=== PATIENT | male | born 1950 | race Caucasian/White ===

== ENCOUNTER 2018-08-10 23:35 | Observation (INO) | payer MEDICARE, OTHER, BC ==
[2018-08-11 00:25] LABS: ADD MAN DIFF? NO
[2018-08-11 00:26] LABS: BASOPHILS % 0.4 % (0.0-2.0); EOSINOPHILS # 0.4 10^3/ul (0.0-0.5); EOSINOPHILS % 5.4 % (0.0-7.0); HEMATOCRIT 41.7 % (42.0-52.0); HEMOGLOBIN 13.8 g/dl (14.0-18.0); LYMPHOCYTES # 2.4 10^3/ul (0.8-2.9); LYMPHOCYTES % 34.6 % (15.0-51.0); MEAN CORPUSCULAR HGB CONC 33.1 g/dl (32.0-37.0); MEAN CORPUSCULAR VOLUME 90.7 fl (82.0-101.0); MEAN PLATELET VOLUME 9.7 fl (7.4-10.4); MONOCYTE # 0.5 10^3/ul (0.3-0.9); MONOCYTES % 7.2 % (0.0-11.0); NEUTROPHIL # 3.6 10^3/ul (1.6-7.5); NEUTROPHILS % 52.3 % (39.0-77.0); PLATELET COUNT 201 10^3/UL (140-415); RED CELL DISTRIBUTION WIDTH 13.2 % (11.5-14.5)
[2018-08-11 00:26] LABS: WHITE BLOOD COUNT 6.8 10^3/ul (4.8-10.8)
[2018-08-11 00:56] LABS: ANION GAP 10 (5-13); BLOOD UREA NITROGEN 17 mg/dl (7-20); CALCIUM 9.5 mg/dl (8.4-10.2); CARBON DIOXIDE 28 mmol/L (21-31); CHLORIDE 101 mmol/L (97-110); CREATININE 0.93 mg/dl (0.61-1.24); Estimated GFR > 60 mL/min (>60); GLUCOSE 110 mg/dl (70-220); POTASSIUM 4.4 mmol/L (3.5-5.1); SODIUM 139 mmol/L (135-144)
[2018-08-11] MEDS: ASPIRIN 81 MG TAB PO ×2 (00:56→08:35)
[2018-08-11 01:07] LABS: TROPONIN-I 0.034 ng/ml (0.000-0.120)
[2018-08-11] MEDS ORDERED: ONDANSETRON 4 MG INJ IV ×2 (02:30→03:30)
[2018-08-11] MEDS ORDERED: ACETAMINOPHEN 325 MG TAB PO ×2 (02:30→03:30)
[2018-08-11] MEDS ORDERED: NACL 0.9% 3 ML SYG IV (03:30)
[2018-08-11] MEDS ORDERED: NON-FORMULARY/PATIENT OWN MED (Temazepam* 15 MG) PO (03:30)
[2018-08-11] MEDS ORDERED: ALBUTEROL/IPRATROPIUM (NEB) 3 ML AMP HHN (03:30)
[2018-08-11] MEDS ORDERED: NITROGLYCERIN (SL) 0.4 MG TAB SL ×2 (03:30→03:45)
[2018-08-11] MEDS ORDERED: TEMAZEPAM 15 MG CAP PO (04:00)
[2018-08-11 06:20] LABS: ADD MAN DIFF? NO
[2018-08-11 06:27] LABS: BASOPHILS % 0.5 % (0.0-2.0); EOSINOPHILS # 0.4 10^3/ul (0.0-0.5); EOSINOPHILS % 5.6 % (0.0-7.0); HEMATOCRIT 40.3 % (42.0-52.0); HEMOGLOBIN 13.3 g/dl (14.0-18.0); LYMPHOCYTES # 2.2 10^3/ul (0.8-2.9); LYMPHOCYTES % 33.4 % (15.0-51.0); MEAN CORPUSCULAR HEMOGLOBIN 29.8 pg (29.0-33.0); MEAN CORPUSCULAR VOLUME 90.4 fl (82.0-101.0); MEAN PLATELET VOLUME 9.9 fl (7.4-10.4); MONOCYTE # 0.5 10^3/ul (0.3-0.9); MONOCYTES % 6.8 % (0.0-11.0); NEUTROPHIL # 3.5 10^3/ul (1.6-7.5); NEUTROPHILS % 53.2 % (39.0-77.0); PLATELET COUNT 192 10^3/UL (140-415); RED BLOOD COUNT 4.46 10^6/ul (4.70-6.10); RED CELL DISTRIBUTION WIDTH 13.2 % (11.5-14.5)
[2018-08-11 06:27] LABS: WHITE BLOOD COUNT 6.6 10^3/ul (4.8-10.8)
[2018-08-11 06:36] LABS: CREATINE KINASE 44 IU/L (23-200)
[2018-08-11 06:43] LABS: HEMOGLOBIN A1C 5.5 % (0-5.9)
[2018-08-11 06:52] LABS: CK INDEX 1.5; CK-MB 0.67 ng/ml (0.0-2.4)
[2018-08-11 06:56] LABS: ALANINE AMINOTRANSFERASE 24 IU/L (13-69); ALBUMIN 3.4 g/dl (3.3-4.9); ALBUMIN/GLOBULIN RATIO 1.13; ALKALINE PHOSPHATASE 37 IU/L (42-121); ANION GAP 8 (5-13); ASPARTATE AMINO TRANSFERASE 22 IU/L (15-46); BILIRUBIN,INDIRECT 0.2 mg/dl (0-1.1); BILIRUBIN,TOTAL 0.2 mg/dl (0.2-1.3); BLOOD UREA NITROGEN 15 mg/dl (7-20); CALCIUM 9.2 mg/dl (8.4-10.2); CARBON DIOXIDE 28 mmol/L (21-31); CHLORIDE 103 mmol/L (97-110); CHOL/HDL RATIO 3.3 RATIO; CHOLESTEROL 129 mg/dl (100-200); Estimated GFR > 60 mL/min (>60); GLUCOSE 113 mg/dl (70-220); HDL CHOLESTEROL 38 mg/dl (30-78); LDL CHOLESTEROL,CALCULATED 76 mg/dl; POTASSIUM 4.4 mmol/L (3.5-5.1); SODIUM 139 mmol/L (135-144); TOTAL PROTEIN 6.4 g/dl (6.1-8.1); TRIGLYCERIDES 74 mg/dl (0-149)
[2018-08-11] MEDS ORDERED: HEPARIN 5,000 UNIT/0.5 ML VIAL (08:23)
[2018-08-11] MEDS: AMLODIPINE 5 MG TAB PO (08:34)
[2018-08-11] MEDS: METOPROLOL 25 MG TAB PO (08:35)
[2018-08-11] MEDS: ESCITALOPRAM 10 MG TAB PO (08:35)
[2018-08-11] MEDS: HYDROCHLOROTHIAZIDE 25 MG TAB PO (08:35)
[2018-08-11] MEDS: CITALOPRAM 20 MG TAB PO (08:35)
[2018-08-11] MEDS: BENAZEPRIL 40 MG TAB PO (08:35)
[2018-08-11] MEDS: HEPARIN SODIUM 5,000 UNIT/ML VIAL SC (08:41)
[2018-08-11] MEDS ORDERED: ASPIRIN 81 MG TAB PO (09:00)
[2018-08-11] MEDS ORDERED: METOPROLOL 25 MG PO (09:00)
[2018-08-11 12:45] LABS: CREATINE KINASE 39 IU/L (23-200)
[2018-08-11 12:58] LABS: CK INDEX 0.9; CK-MB 0.35 ng/ml (0.0-2.4); TROPONIN-I < 0.012 ng/ml (0.000-0.120)
== END 2018-08-11 16:19 | disposition home or self-care (01) ==
LOC: E/R 23:35 → 6WM 08-11 02:22
DX: R07.89 Other chest pain (principal); I10 Essential (primary) hypertension; F32.9 Major depressive disorder, single episode, unspecified; G47.00 Insomnia, unspecified; Z79.82 Long term (current) use of aspirin
CPT/HCPCS: 36415; 71045; 80048; 80053; 80061; 82550; 82553; 83036; 83735; 84443; 84484; 85025; 93005; 99285-25; G0378